=== PATIENT | male | born 1990 | race Caucasian/White ===

== ENCOUNTER → 2017-10-12 | Emergency (ER) | payer OTHER ==
[~2017-10-12] VITALS: Ht 182.9 cm; Wt 111.1 kg
[~2017-10-12] MED LIST: AMITRIPTYLINE H25 MG PO; GABAPENTIN800 MG PO; IBUPROFEN800 MG PO; MORPHINE SULFAT15 M1 PO; NORCO 5-325 TA1 EACH PO
== END ==
LOC: ED 19:26
PROC: 2W3LX1Z Immobilization of Right Lower Extremity using Splint (ICD-10-PCS; principal; 2017-10-12)
DX: S83.421A Sprain of lateral collateral ligament of right knee, initial encounter (principal); Z98.890 Other specified postprocedural states; Z79.899 Other long term (current) drug therapy; X50.9XXA Other and unspecified overexertion or strenuous movements or postures, initial encounter; Y92.69 Other specified industrial and construction area as the place of occurrence of the external cause; Y99.0 Civilian activity done for income or pay
CPT/HCPCS: 29505; 73560; 99283

== ENCOUNTER 2018-01-11 03:36 | Emergency (ER) | payer OTHER ==
[~2018-01-11] VITALS: Ht 182.9 cm; Wt 111.1 kg
--- OUTSIDE RECORDS SUMMARY | ~2018-01-11 | XMS | Clinical Summary ---
Demographics + + + | Address | [address] | | | [place] [address] | + + + | Home Phone | | + + + | Preferred Language | Unknown | + + + | Marital Status | | + + + | Anabaptism Affiliation | Unknown | + + + | Race | Unknown | + + + | Ethnic Group | Unknown | + + + Author + + + | Author | [facility] | | | and [place] | + + + | Organization | [facility] | | | and [place] | + + + | Address | Unknown | + + + | Phone | Unavailable | + + + Support + + +---------+ + | Name | Relationship | Address | Phone | + + +---------+ + | SRI STARR | ECON | Unknown | | + + +---------+ + Care Team Providers + +------+ + | Care Underwriting Account Representative Name | Role | Phone | + +------+ + | Timbo Roman DO | PP | | + +------+ + Allergies No Known Allergies Current Medications + + +-------+---------+------+------+-------+ | Prescription | Sig. | Disp. | Refills | Star | End | Statu | | | | | | t | Date | s | | | | | | Date | | | + + +-------+---------+------+------+-------+ | GABAPENTIN PO | Take 800 mg by mouth | | | | | Activ | | | 4 times daily. | | | | | e | + + +-------+---------+------+------+-------+ | | Take by mouth 4 | | | | | Activ | | HYDROcodone-acetamin | times daily as | | | | | e | | ophen (HYCET) | needed for Pain. | | | | | | | 7.5-325 mg/15 mL | | | | | | | | liquid | | | | | | | + + +-------+---------+------+------+-------+ | amitriptyline | Take 25 mg by mouth | | | | | Activ | | (ELAVIL) 25 mg | nightly. | | | | | e | | tablet | | | | | | | + + +-------+---------+------+------+-------+ | IBUPROFEN PO | Take by mouth. | | | | | Activ | | | | | | | | e | + + +-------+---------+------+------+-------+ | Cholecalciferol | Take by mouth. | | | | | Activ | | (VITAMIN D PO) | | | | | | e | + + +-------+---------+------+------+-------+ | Cyanocobalamin | Take by mouth. | | | | | Activ | | (VITAMIN B 12 PO) | | | | | | e | + + +-------+---------+------+------+-------+ | Pyridoxine HCl | Take by mouth. | | | | | Activ | | (VITAMIN B6 PO) | | | | | | e | + + +-------+---------+------+------+-------+ Active Problems No known active problems Social History + +-------+ +--------+------+ | Tobacco Use | Types | Packs/Day | Years | Date | | | | | Used | | + +-------+ +--------+------+ | Former Smoker | | | | | + +-------+ +--------+------+ + +------+---+---+ | Smokeless Tobacco: | Chew | | | | Current User | | | | + +------+---+---+ + + + | Sex Assigned at | Date Recorded | | | | + + + | Not on file | | + + + Last Filed Vital Signs + + + + | Vital Sign | Reading | Time Taken | + + + + | Blood Pressure | 145/97 | 06/27/2017 1320 PDT | + + + + | Pulse | 88 | 06/27/2017 1320 PDT | + + + + | Temperature | 37.4 C (99.3 F) | 06/27/20171319 PDT | + + + + | Respiratory Rate | 20 | 06/27/20171319 PDT | + + + + | Oxygen Saturation | 97% | 06/27/20171319 PDT | + + + + | Inhaled Oxygen | - | - | | Concentration | | | + + + + | Weight | 113.9 kg (251 lb) | 06/27/20171319 PDT | + + + + | Height | 182.9 cm (6') | 06/27/20171319 PDT | + + + + | Body Mass Index | 34.04 | 06/27/2017 1320 PDT | + + + + Plan of Treatment + + + + + | Health Maintenance | Due Date | Last Done | Comments | + + + + + | Vaccine: | | | | | Dtap/Tdap/Td (1 - | 7 | | | | Tdap) | | | | + + + + + | Vaccine: Influenza | | | | | (Season Ended) | 8 | | | + + + + + Results Not on filefrom Last 3 Months Insurance + +--------+ +------+ +---------+ | Payer | Benefi | Subscriber | Type | Phone | Address | | | t Plan | ID | | | | | | / | | | | | | | Group | | | | | + +--------+ +------+ +---------+ | [employer] | PHP | xxxxxxxxxxx | PPO | [id number] | | | PLAN | [place] | | [phone] | | | [address] | | | | | | | [place] | | | | | + +--------+ +------+ +---------+ + +--------+ +--------+ + + | Guarantor Name | Accoun | Relation to | Date | Phone | Billing Address | | | t Type | Patient | of | | | | | | | | | | + +--------+ +--------+ + + | JERRI HERMOSILLO | Person | Self [birth year] | Home: | [address] | | | [email or web address] | | [phone] | [phone] [place] | | | [place] | | [phone] | + +--------+ +--------+ + +"
--- OUTSIDE RECORDS SUMMARY | ~2018-01-11 | XMS | Clinical Summary ---
Demographics + + + | Address | [address] | | | [place] [address] | + + + | Home Phone | | + + + | Preferred Language | Unknown | + + + | Marital Status | | + + + | Yarsani Affiliation | Unknown | + + + | Race | Unknown | + + + | Ethnic Group | Unknown | + + + Author + + + | Author | [facility] | | | and [place] | + + + | Organization | [facility] | | | and [...] Team Providers + +------+ + | Care Polymer Engineer Name | Role | Phone | + [...] | | + +--------+ +------+ +---------+ | [employer] | PHP | [phone] | PPO | [phone] | | | PLAN | [place] | [...] | | | [place] | | [phone] | + +--------+ +--------+ + +"
== END 2018-01-11 04:55 | disposition home or self-care (01) ==
LOC: ED 03:36
DX: S93.401A Sprain of unspecified ligament of right ankle, initial encounter (principal); S93.601A Unspecified sprain of right foot, initial encounter; Z87.891 Personal history of nicotine dependence; W18.30XA Fall on same level, unspecified, initial encounter
CPT/HCPCS: 73610; 73630; 99283

== ENCOUNTER → 2018-02-01 | Emergency (ER) | payer OTHER ==
[~2018-02-01] VITALS: Ht 182.9 cm; Wt 111.1 kg
== END ==
LOC: ED 02:29
DX: S83.421A Sprain of lateral collateral ligament of right knee, initial encounter (principal); Z79.899 Other long term (current) drug therapy; X50.9XXA Other and unspecified overexertion or strenuous movements or postures, initial encounter; Y93.01 Activity, walking, marching and hiking
CPT/HCPCS: 73560; 99283